=== PATIENT | male | born 1950 | race Caucasian/White ===

== ENCOUNTER → 2021-06-05 10:33 | Outpatient (BNVA) | payer MEDICARE, OTHER, SELFPAY | PROVIDERS: Family Provider Family Medicine; PCP Family Medicine; Visit Provider Specialist | DX: G56.03 Carpal tunnel syndrome, bilateral upper limbs (principal) | CPT/HCPCS: 95910 ==

== ENCOUNTER 2021-10-09 12:47 | Outpatient (CLI) | payer MEDICARE, OTHER, SELFPAY ==
--- NOTE | 2021-10-09 13:59 | USCV_ITS ---
Adrian Justin Age: 71 Gender: M : 1950 Exam Date: 10/09/2021 14:03 Ordering Phys: Max Echevarria NP Technologist: NANDO [place] [facility] [place]: Swelling Lt leg HISTORY: Swelling of Lt. Leg PROCEDURES: Venous duplex imaging was performed in only the left lower extremity. The following venous structures were evaluated: common femoral vein, profunda vein, proximal portion of the greater saphenous vein, superficial femoral vein, and the popliteal vein. In addition, the posterior tibial and peroneal trunk were evaluated. Serial compression, augmentation maneuvers, and spectral Doppler flow evaluation were performed. FINDINGS: DVT noted from Lt CVF thru FV thru Pop thru Peroneal. Prelim called to Aparna at [place] office CONCLUSIONS Left DVT involving the left common femoral vein, femoral vein, and popliteal vein extending into the peroneal Prelim called to [facility]par[facility] at [place] office by socket welder helper at time of exam Avery Thomas MD (Electronically Signed) Final Date: 09 October 2021 17:03 S
== END 2021-10-09 12:48 | disposition home or self-care (01) ==
LOC: RAD 12:47
PROVIDERS: Family Provider Family Medicine; PCP Family Medicine; Visit Provider Clinical Nurse Specialist Adult Health
DX: I82.412 Acute embolism and thrombosis of left femoral vein (principal); I82.432 Acute embolism and thrombosis of left popliteal vein; M79.89 Other specified soft tissue disorders
CPT/HCPCS: 93971

== ENCOUNTER 2021-10-18 14:35 | Outpatient (CLI) | payer MEDICARE, OTHER, SELFPAY ==
--- NOTE | 2021-10-18 14:42 | XR_ITS ---
WS: [id number] Chest 2 views, 10/18/2021 Clinical Data: Chest Pain Comparison: None. Findings: No nodules, masses or effusions are seen. The heart is normal. The pulmonary vascularity is not increased. No pneumonia or pneumothorax is seen. The aortic arch and descending thoracic aorta s how calcification and mild tortuosity. XR/XR chest 2V* [id number] Impression: Atherosclerosis.
== END 2021-10-18 14:36 | disposition home or self-care (01) ==
LOC: RAD 14:38
PROVIDERS: PCP Family Medicine; Visit Provider Family Medicine
DX: R07.9 Chest pain, unspecified (principal); I70.0 Atherosclerosis of aorta
CPT/HCPCS: 71046; 80053; 84153; 85025; 86140

== ENCOUNTER → 2022-08-20 12:55 | Outpatient (BNVA) | payer MEDICARE, OTHER, SELFPAY | PROVIDERS: PCP Family Medicine; Visit Provider Family Medicine | DX: Z51.81 Encounter for therapeutic drug level monitoring (principal); E11.9 Type 2 diabetes mellitus without complications; R35.0 Frequency of micturition; Z13.220 Encounter for screening for lipoid disorders | CPT/HCPCS: 80053; 80061; 82043; 83036; 84153; 85025 ==

== ENCOUNTER → 2023-11-07 10:47 | Outpatient (BNVA) | payer MEDICARE, OTHER, SELFPAY | PROVIDERS: PCP Family Medicine; Visit Provider Family Medicine | DX: Z51.81 Encounter for therapeutic drug level monitoring (principal); R06.6 Hiccough | CPT/HCPCS: 80053; 83690; 85025; 86141 ==